=== PATIENT | female | born 1995 | race Hispanic/Latino ===

== ENCOUNTER 2016-12-19 17:21 | Emergency (ER) | payer OTHER ==
[2016-12-19 17:29] VITALS: BP 121/71; PULSE 88; RESP 18; TEMP 98; O2SAT 100
--- NOTE | 2016-12-19 18:18 | ED PDOC ---
HPI: Wound Care - HPI Time Seen by Provider: 12/19/16 17:30 Chief Complaint (Nursing): Suture/Staple Removal Chief Complaint (Provider): Suture/Staple removal History Per: Patient Exam Limitations: no limitations Severity: Mild Additional Complaint(s): 21 year old female with no pertinent medical history presents to the ED for a suture removal. She reports that she recently had a [place] butt lift in [place] 6x weeks ago and was referred to her PMD and ED for her suture removal. She has no complaints at this time. PMD: Adán Moore MD Past Medical History Reviewed: Historical Data, Nursing Documentation, Vital Signs Vital Signs: Last Vital Signs Temp 98 F 12/19/16 17:24 Pulse 88 12/19/16 17:24 Resp 18 12/19/16 17:24 BP 121/71 12/19/16 17:24 Pulse Ox 100 12/19/16 17:24 - Medical History PMH: No Chronic Diseases - Surgical History Other surgeries: bruneian butt lift - Family History Family History: States: No Known Family Hx - Social History Alcohol: Social Drugs: Denies - Home Medications Home Medications: Ambulatory Orders Medication Instructions Recorded Naproxen [Naprosyn Tab] 1 tab PO Q8 PRN #21 tab 06/29/16 Bacitracin Ointment [Bacitracin] 0.5 gm TOP BID #1 tube 12/19/16 - Allergies Allergies/Adverse Reactions: Allergies Allergy/AdvReac Type Severity Reaction Status Date / Time No Known Allergies Allergy Verified 06/29/16 22:16 Review of Systems Constitutional: Negative for: Fever, Chills Physical Exam - Reviewed Nursing Documentation Reviewed: Yes Vital Signs Reviewed: Yes - Physical Exam Appears: Positive for: Well, Non-toxic, No Acute Distress Head Exam: Positive for: ATRAUMATIC, NORMOCEPHALIC Skin: Positive for: Normal Color, Warm, Dry Neck: Positive for: Normal Cardiovascular/Chest: Positive for: Regular Rate, Rhythm Respiratory: Positive for: Normal Breath Sounds. Negative for: Respiratory Distress Gastrointestinal/Abdominal: Positive for: Other (4 sutures noted in tact. no erythema, no swelling, no signs of infection) Neurologic/Psych: Positive for: Alert, Oriented (3x) - ECG O2 Sat by Pulse Oximetry: 100 (RA) Pulse Ox Interpretation: Normal Medical Decision Making Medical Decision Makin:30 Initial impression: 21 year old female with sutures in the ED for suture removal. Scribe Attestation: Documented by Suzi Kerns, acting as a scribe for José Sánchez PA-C. Provider Scribe Attestation: All medical record entries made by the Scribe were at my direction and personally dictated by me. I have reviewed the chart and agree that the record accurately reflects my personal performance of the history, physical exam, medical decision making, and the department course for this patient. I have also personally directed, reviewed, and agree with the discharge instructions and disposition. Disposition - Clinical Impression Clinical Impression: Visit for wound check - Patient ED Disposition Is Patient to be Admitted: No - Disposition Referrals: Jacob Mckeon MD [Staff Provider] - Lang Little MD [Staff Provider] - Disposition: Routine/Home Disposition Time: 18:24 Condition: FAIR Prescriptions: Bacitracin Ointment [Bacitracin] 0.5 gm TOP BID #1 tube Instructions: Acute Wound Care (ED)
== END 2016-12-19 18:24 | disposition home or self-care (01) ==
LOC: H.ER 17:21
DX: Z48.02 Encounter for removal of sutures (principal)